=== PATIENT | male | born 1980 | race Caucasian/White ===

== ENCOUNTER → 2020-10-28 11:15 | Outpatient (BNVA) | payer BC, SELFPAY | PROVIDERS: Visit Provider Nurse Practitioner Family | DX: L65.9 Nonscarring hair loss, unspecified (principal); Z13.6 Encounter for screening for cardiovascular disorders; Z00.00 Encounter for general adult medical examination without abnormal findings; R53.83 Other fatigue | CPT/HCPCS: 80053; 80061; 82306; 82607; 84403; 84439; 84443; 84481; 85025 ==

== ENCOUNTER 2023-08-29 09:45 | Outpatient (CLI) | payer BC, SELFPAY ==
[2023-08-29 11:10] LABS: Sperm Present Sperm Not Present
== END 2023-08-29 09:46 | disposition home or self-care (01) ==
LOC: LAB 09:47
PROVIDERS: PCP Internal Medicine; Visit Provider Internal Medicine
DX: Z30.09 Encounter for other general counseling and advice on contraception (principal)
CPT/HCPCS: 80503; 89310